=== PATIENT | female | born 1965 | race African-American/Black ===

== ENCOUNTER 2021-09-23 09:04 | Emergency (ER) | payer BC ==
[2021-09-23 09:50] LABS: Protime INR 1.19
[2021-09-23 09:59] LABS: Absolute Lymphocytes (CBC) 2.3 K/uL (0.7-4.9); Hematocrit 42.8 % (36.0-45.0); Lymphocytes % 21.6 % (15.3-44.8); RBC Red Blood Cell Count 4.87 M/uL (3.86-4.86)
[2021-09-23 10:06] LABS: Albumin 4.4 g/dL (3.4-5.0); Bilirubin Direct 0.3 mg/dL (0-0.2); Bilirubin Total 1.1 mg/dL (0.2-1.0); Potassium 3.4 mmol/L (3.5-5.1); Protein, Total 9.3 g/dL (6.4-8.2); Troponin High Sensitivity 56.4 pg/mL (<58.9)
[2021-09-23 10:33] LABS: Thyroid Stimulating Hormone 11.8 uIU/mL (0.360-3.740)
--- NOTE | 2021-09-23 11:03 | RAD REPORT ---
EXAM DESCRIPTION: RAD - Chest Single View - 09/23/2021 10:25 am CLINICAL HISTORY: PALPITATIONS Chest pain. COMPARISON: No comparisons FINDINGS: Portable technique limits examination quality. The lungs are grossly clear. The heart is normal in size. No displaced fractures. IMPRESSION: No acute intrathoracic process suspected.
[2021-09-23] MEDS ORDERED: NA CHLORIDE 0.9% 1,000 ML ONE (12:37)
[2021-09-23] MEDS ORDERED: hydrOXYzine HCL 25 MG TAB ONE (13:37)
[2021-09-23] MEDS ORDERED: DIAZEPAM 10 MG/2 ML INJ SYRINGE ONE (15:02)
--- NOTE | 2021-09-23 15:12 | ER ---
Nurse's Notes [facility] Name: Kurtis Singer Age: 56 yrs Sex: Female : 1965 Arrival Date: 09/23/2021 Time: 09:06 Bed 13 Private MD: Diagnosis: Essential (primary) hypertension;Palpitations;Acute stress reaction Presentation: 09/23 09:12 Chief complaint: Patient states: Fast HR started at 7:45 this morning. No pain. Last ll1 time this happened she had a bang energy drink. No caffeine today. Coronavirus screen: Vaccine status: Patient reports receiving the 2nd dose of the covid vaccine. Client denies travel out of the [place] in the last 14 days. At this time, the client does not indicate any symptoms associated with coronavirus-19. Ebola Screen: Patient denies travel to an Ebola-affected area in the 21 days before illness onset. Initial Sepsis Screen: Does the patient meet any 2 criteria? HR > 90 bpm. No. Patient's initial sepsis screen is negative. Does the patient have a suspected source of infection? No. Patient's initial sepsis screen is negative. Risk Assessment: Do you want to hurt yourself or someone else? Patient reports no desire to harm self or others. Onset of symptoms was September 23, 2021. 09:12 Method Of Arrival: Ambulatory ll1 09:12 Acuity: LUIS ALFREDO 3 ll1 Triage Assessment: 09:14 General: Appears uncomfortable, Behavior is cooperative, appropriate for age. Pain: ss Denies pain. Cardiovascular: Reports lightheadedness, palpitations. Historical: - Allergies: 09:13 PENICILLINS; ll1 - PMHx: 09:13 Hypertensive disorder; ll1 - PSHx: 09:13 None; ll1 - Immunization history:: Client reports receiving the 2nd dose of the Covid vaccine. - Social history:: Smoking status: Patient denies any tobacco usage or history of. Screenin:46 Abuse screen: Denies threats or abuse. Denies injuries from another. Nutritional ww screening: No deficits noted. Tuberculosis screening: No symptoms or risk factors identified. Fall Risk None identified. Assessment: 12:45 General: Appears in no apparent distress. Behavior is cooperative, anxious. Neuro: ww Level of Consciousness is awake, alert, obeys commands, Oriented to person, place, time, situation, Moves all extremities. Gait is steady, Speech is normal. Cardiovascular: Capillary refill < 3 seconds Patient's skin is warm and dry. Rhythm is sinus tachycardia. Respiratory: Airway is patent Respiratory effort is even, unlabored, Respiratory pattern is regular, symmetrical. GI: No signs and/or symptoms were reported involving the gastrointestinal system. : No signs and/or symptoms were reported regarding the genitourinary system. Derm: Skin is intact, is healthy with good turgor, Skin is pink, warm \T\ dry. 13:45 Reassessment: Patient appears in no apparent distress at this time. No changes from ww previously documented assessment. Patient and/or family updated on plan of care and expected duration. Pain level reassessed. Patient is alert, oriented x 3, equal unlabored respirations, skin warm/dry/pink. 15:19 Reassessment: Patient appears in no apparent distress at this time. No changes from ww previously documented assessment. Patient and/or family updated on plan of care and expected duration. Pain level reassessed. Patient is alert, oriented x 3, equal unlabored respirations, skin warm/dry/pink. 16:39 Reassessment: Patient appears in no apparent distress at this time. No changes from ww previously documented assessment. Patient and/or family updated on plan of care and expected duration. Pain level reassessed. Patient is alert, oriented x 3, equal unlabored respirations, skin warm/dry/pink. Patient states feeling better. Vital Signs: 09:12 BP 173 / 105; Pulse 126; Resp 17; Temp 98.1; Pulse Ox 99% ; Weight 97.07 kg; Height 5 ll1 ft. 2 in. (157.48 cm); Pain 0/10; 12:46 BP 161 / 92; Pulse 120; Resp 19; ww 13:30 BP 170 / 98; Pulse 110; Resp 17; ww 14:30 BP 148 / 91; Pulse 88; Resp 20; ww 15:47 BP 142 / 90; Pulse 101; Resp 20; ww 16:39 BP 144 / 94; Pulse 95; Resp 19; Pulse Ox 98% ; ww 09:12 Body Mass Index 39.14 (97.07 kg, 157.48 cm) ll1 ED Course: 09:06 Patient arrived in ED. mr 09:13 Triage completed. ll1 09:14 Arm band placed on. ll1 09:27 Marinas, Quan, [employer] SALES ENGINE[employer] is PHCP. pm1 09:27 All Fraser MD is Attending Physician. pm1 10:27 XRAY Chest (1 view) In Process Unspecified. EDMS 12:31 Angela Perez, RN is Primary Nurse. ww 12:46 Patient has correct armband on for positive identification. Bed in low position. Call ww light in reach. Side rails up X 1. Client placed on continuous cardiac and pulse oximetry monitoring. NIBP monitoring applied. Warm blanket given. 12:46 IV is patent, is intact, with fluids infusing freely, with good blood return. ww 13:30 No provider procedures requiring assistance completed. IV discontinued, bleeding ww controlled, No redness/swelling at site. Pressure dressing applied. Administered Medications: 12:45 Drug: NS 0.9% 1000 ml Route: IV; Rate: 1000 ml; Site: left antecubital; ww 13:40 Drug: hydrOXYzine 50 mg Route: PO; ww 15:10 Drug: Valium (diazepam) 2 mg Route: IVP; Site: left antecubital; ww Outcome: 13:30 Discharged to home ambulatory. ww 13:30 Condition: stable 13:30 Discharge instructions given to patient, Instructed on discharge instructions, follow up and referral plans. medication usage, safety practices, Demonstrated understanding of instructions, follow-up care, medications, Prescriptions given X 1. 15:12 Discharge ordered by . pm1 16:41 Patient left the ED. ww Signatures: Dispatcher [employer] [facility] Brina MercadoJennie zamora RN RN Quan Sanchez NP [employer] SAL[employer] pm1 Tressa Harrison RN RN [facility] Angela Perez RN RN
--- NOTE | 2021-09-23 15:12 | EDPHYS ---
Physician Documentation [facility] Name: Kurtis Singer Age: 56 yrs Sex: Female : 1965 Arrival Date: 09/23/2021 Time: 09:06 Bed 13 Private MD: ED Physician All Fraser HPI: 09/23 09:31 This 56 yrs old Black Female presents to ER via Ambulatory with complaints of High pm1 Blood Pressure, Heart racing. 09:31 The patient has elevated blood pressure and discovered this at home, with a home device.pm1 09:31 Onset: The symptoms/episode began/occurred this morning. Modifying factors: The pm1 symptoms are aggravated by stress. Associated signs and symptoms: Pertinent negatives: chest pain, nausea, vomiting, shortness of breath. Severity of symptoms: in the emergency department the blood pressure is unchanged. The patient has experienced similar episodes in the past, a few times, today's symptoms are similar, to previous energy drink consumption. The patient has not recently seen a physician. Historical: - Allergies: 09:13 PENICILLINS; ll1 - PMHx: 09:13 Hypertensive disorder; ll1 - PSHx: 09:13 None; ll1 - Immunization history:: Client reports receiving the 2nd dose of the Covid vaccine. - Social history:: Smoking status: Patient denies any tobacco usage or history of. ROS: 09:31 Constitutional: Negative for fever, chills, and weight loss. pm1 09:31 Respiratory: Negative for shortness of breath, cough, wheezing, and pleuritic chest pain, Abdomen/GI: Negative for abdominal pain, nausea, vomiting, diarrhea, and constipation, Back: Negative for injury and pain, Skin: Negative for injury, rash, and discoloration, Neuro: Negative for headache, weakness, numbness, tingling, and seizure. 09:31 Cardiovascular: Positive for palpitations, Negative for chest pain. 09:31 All other systems are negative. Exam: 09:31 Constitutional: This is a well developed, well nourished patient who is awake, alert, pm1 and in no acute distress. Head/Face: Normocephalic, atraumatic. 09:31 Respiratory: Lungs have equal breath sounds bilaterally, clear to auscultation and percussion. No rales, rhonchi or wheezes noted. No increased work of breathing, no retractions or nasal flaring. Abdomen/GI: Soft, non-tender, with normal bowel sounds. No distension or tympany. No guarding or rebound. No evidence of tenderness throughout. Back: No spinal tenderness. No costovertebral tenderness. Full range of motion. Skin: Warm, dry with normal turgor. Normal color with no rashes, no lesions, and no evidence of cellulitis. MS/ Extremity: Pulses equal, no cyanosis. Neurovascular intact. Full, normal range of motion. 09:31 Cardiovascular: Rate: tachycardic, Rhythm: Pulses: no pulse deficits are appreciated. 09:31 Neuro: Exam negative for acute changes, Orientation: is normal, Mentation: is normal, Motor: is normal, moves all fours. Vital Signs: 09:12 BP 173 / 105; Pulse 126; Resp 17; Temp 98.1; Pulse Ox 99% ; Weight 97.07 kg; Height 5 ll1 ft. 2 in. (157.48 cm); Pain 0/10; 12:46 BP 161 / 92; Pulse 120; Resp 19; ww 13:30 BP 170 / 98; Pulse 110; Resp 17; ww 14:30 BP 148 / 91; Pulse 88; Resp 20; ww 15:47 BP 142 / 90; Pulse 101; Resp 20; ww 16:39 BP 144 / 94; Pulse 95; Resp 19; Pulse Ox 98% ; ww 09:12 Body Mass Index 39.14 (97.07 kg, 157.48 cm) ll1 MDM: 10:01 Patient medically screened. pm1 13:22 ED course: Patient crying and and reporting that many of her symptoms are related to pm1 stressors in life at the moment: sister from cancer, taking care of 33 year old son who has money problems. Will give patient medications for her anxiety and will reassess. 13:22 Counseling: I had a detailed discussion with the patient and/or guardian regarding: the pm1 historical points, exam findings, and any diagnostic results supporting the discharge/admit diagnosis, lab results, radiology results, the need for outpatient follow up, to return to the emergency department if symptoms worsen or persist or if there are any questions or concerns that arise at home. 15:02 Data reviewed: vital signs. Data interpreted: Pulse oximetry: on room air is 99 %. pm1 Interpretation: normal. 09/23 09:31 Order name: Basic Metabolic Panel; Complete Time: 10:08 pm09/23 09:31 Order name: CBC with Diff; Complete Time: 10:08 pm09/23 09:31 Order name: LFT's; Complete Time: 10:08 pm1 09/23 09:31 Order name: Magnesium; Complete Time: 10:08 pm1 09/23 09:31 Order name: NT PRO-BNP; Complete Time: 10:08 pm09/23 09:31 Order name: PT-INR; Complete Time: 10:08 pm1 09/23 09:21 Order name: EKG; Complete Time: 09:21 rn 09/23 09:31 Order name: Troponin HS; Complete Time: 10:08 pm1 09/23 09:31 Order name: XRAY Chest (1 view); Complete Time: 11:23 pm1 09/23 09:50 Order name: TSH; Complete Time: 11:23 pm1 09/23 10:35 Order name: T4 Free; Complete Time: 11:23 EDMS 09/23 09:31 Order name: Cardiac monitoring; Complete Time: 09:39 pm1 09/23 09:31 Order name: EKG - Nurse/Tech; Complete Time: 09:39 pm1 09/23 09:31 Order name: IV Saline Lock; Complete Time: 10:59 pm1 09/23 09:31 Order name: Labs collected and sent; Complete Time: 12:45 pm1 09/23 09:31 Order name: O2 Per Protocol; Complete Time: 12:45 pm1 09/23 09:31 Order name: O2 Sat Monitoring; Complete Time: 12:45 pm1 Administered Medications: 12:45 Drug: NS 0.9% 1000 ml Route: IV; Rate: 1000 ml; Site: left antecubital; ww 13:40 Drug: hydrOXYzine 50 mg Route: PO; ww 15:10 Drug: Valium (diazepam) 2 mg Route: IVP; Site: left antecubital; ww Disposition: 18:54 Co-signature as Attending Physician, All Fraser MD. rn Disposition Summary: 09/23/21 15:12 Discharge Ordered Location: Home pm1 Problem: new pm1 Symptoms: have improved pm1 Condition: Stable pm1 Diagnosis - Essential (primary) hypertension pm1 - Palpitations pm1 - Acute stress reaction pm1 Followup: pm1 - With: Emergency Department - When: As needed - Reason: Worsening of condition Followup: pm1 - With: Private Physician - When: 2 - 3 days - Reason: Recheck today's complaints, Continuance of care, Re-evaluation by your physician Discharge Instructions: - Discharge Summary Sheet pm1 - Hypertension, Adult pm1 - Palpitations pm1 - Stress, Adult pm1 - How to Take Your Blood Pressure, [id number] pm1 - DASH Eating Plan pm1 - Managing Your Hypertension pm1 Forms: - Medication Reconciliation Form pm1 - Thank You Letter pm1 - Antibiotic Education pm1 - Prescription Opioid Use pm1 Prescriptions: - Valium 2 mg Oral Tablet - take 1 tablet by ORAL route every 8 hours As needed; 10 tablet; Refills: 0, pm1 Product Selection Permitted Signatures: Dispatcher [employer] All Abreu MD MD rn Quan Sanchez, [employer] pm1 Tressa Harrison RN RN 1 Angela Perez RN RN ww
[2021-09-23 18:54] VITALS: TEMP 98.1
[2021-09-23 19:09] VITALS: BP 144/94; O2SAT 98
--- NOTE | 2021-09-24 12:57 | EKG ---
Test Date: 2021-09-23 Test Time: 09:20:42 Coal Crusher Operator: EDUARDO MEASUREMENT RESULTS: Intervals: Rate: 128 TX: 168 QRSD: 78 QT: 288 QTc: 420 [place]: P: 71 TX: 168 QRS: 102 T: 5 INTERPRETIVE STATEMENTS: Sinus tachycardia with premature atrial complexes Rightward axis Cannot rule out Anterior infarct, age undetermined T wave abnormality, consider inferior ischemia Abnormal ECG No previous ECG available for comparison Electronically Signed On 09-24-21 12:52:21 CDT by Pierre Solis
== END 2021-09-23 16:41 | disposition home or self-care (01) ==
LOC: ER 09:04
DX: I10 Essential (primary) hypertension (principal); F43.0 Acute stress reaction; R00.2 Palpitations; Z88.0 Allergy status to penicillin
CPT/HCPCS: 93005; 85025; 80048; 36415; 83735; 85610; 80076; 84443; 84484; 84439; 83880; 71045; J3360; J7030; 96374; 99284

== ENCOUNTER 2021-09-29 03:45 | Emergency (ER) | payer BC ==
[2021-09-29 04:23] LABS: Urine Blood Negative (Negative); Urine Glucose Negative (Negative); Urine Protein Negative (Negative)
--- NOTE | 2021-09-29 07:10 | RAD REPORT ---
EXAM DESCRIPTION: RAD - Chest Single View - 09/29/2021 6:55 am CLINICAL HISTORY: CHEST PAIN COMPARISON: Chest Single View dated 09/23/2021 FINDINGS: Lines: None. Lungs: No evidence of edema or pneumonia. Pleural: No significant pleural effusions or pneumothorax. Cardiac: The heart size is within normal limits. Bones: No acute fractures. Other: IMPRESSION: No acute cardiopulmonary disease.
[2021-09-29 07:36] LABS: Absolute Lymphocytes (CBC) 2.5 K/uL (0.7-4.9); Hematocrit 41.8 % (36.0-45.0); Lymphocytes % 20.5 % (15.3-44.8); MPV 8.4 fL (7.6-11.3); RBC Red Blood Cell Count 4.73 M/uL (3.86-4.86)
[2021-09-29 07:42] LABS: Protime INR 1.11
[2021-09-29] MEDS ORDERED: METOPROLOL TAR 50 MG TAB ONE (07:44)
[2021-09-29] MEDS ORDERED: NA CHLORIDE 0.9% 500 ML ONE (07:44)
[2021-09-29] MEDS ORDERED: NA CHLORIDE 0.9% 1,000 ML ONE (07:44)
[2021-09-29 08:11] LABS: Thyroid Stimulating Hormone 14.2 uIU/mL (0.360-3.740)
[2021-09-29 08:12] LABS: ALT/SGPT 56 U/L (12-78); AST/SGOT 38 U/L (15-37); Albumin 4.3 g/dL (3.4-5.0); Alkaline Phosphatase 90 U/L (45-117); BUN Blood Urea Nitrogen 17 mg/dL (7-18); Bicarbonate 25 mmol/L (21-32); Bilirubin Total 0.3 mg/dL (0.2-1.0); Glucose Level 127 mg/dL (74-106); Magnesium 1.9 mg/dL (1.8-2.4); NT PRO-BNP 34 pg/mL (<125); Potassium 3.5 mmol/L (3.5-5.1); Sodium Level 134 mmol/L (136-145); Troponin High Sensitivity 44.8 pg/mL (<58.9)
[2021-09-29 08:15] LABS: Bilirubin Direct < 0.1 mg/dL (0-0.2)
--- NOTE | 2021-09-29 08:27 | RAD REPORT ---
EXAM DESCRIPTION: US - Extrem Venous W Compress Silvio - 09/29/2021 8:08 am CLINICAL HISTORY: PAIN COMPARISON: No comparisons TECHNIQUE: Real-time sonographic evaluation of the lower extremity deep venous systems was performed using color Doppler, grayscale, and compression. FINDINGS: Bilateral lower extremities. Normal compressibility, flow augmentation, phasic flow and spontaneous flow is identified in both the left and right lower extremity deep venous systems. No intraluminal filling defects seen. IMPRESSION: No DVT in either lower extremity.
--- NOTE | 2021-09-29 08:29 | RAD REPORT ---
EXAM DESCRIPTION: CT - Chest For Pe Angio - 09/29/2021 8:18 am CLINICAL HISTORY: dyspnea COMPARISON: No comparisons FINDINGS: Chest Wall: No suspicious thyroid nodules or pathologic lymphadenopathy. Lungs: No acute abnormality. Pleura: No significant effusions or pneumothorax. Mediastinum/tracy: No pathologic lymphadenopathy. Pulmonary arteries/Aorta: No filling defect identified. No aortic aneurysm. Heart: No significant pericardial effusion. Normal heart size. Upper abdomen: No acute abnormality. Bones: No acute abnormality. All CT scans are performed using dose optimization technique as appropriate and may include automated exposure control or mA/KV adjustment according to patient size. IMPRESSION: Negative for pulmonary embolism. No acute findings in the chest.
--- NOTE | 2021-09-29 08:55 | EKG ---
Test Date: 2021-09-29 Test Time: 04:09:53 Route Returner: ENMANUEL MEASUREMENT RESULTS: Intervals: Rate: 120 SC: 188 QRSD: 86 QT: 292 QTc: 412 [place]: P: 63 SC: 188 QRS: 31 T: 8 INTERPRETIVE STATEMENTS: Sinus tachycardia Cannot rule out Anterior infarct, age undetermined Abnormal ECG Compared to ECG 09/23/2021 09:20:42 Atrial premature complex(es) no longer present Right-axis deviation no longer present T-wave abnormality no longer present Possible ischemia no longer present Myocardial infarct finding still present Electronically Signed On 09-29-21 08:54:19 CDT by Pierre Solis
--- NOTE | 2021-09-29 09:40 | ER ---
Nurse's Notes [facility] Name: Kurtis Singer Age: 56 yrs Sex: Female : 1965 Arrival Date: 09/29/2021 Time: 03:48 Bed 25 Private MD: Diagnosis: Tachycardia, unspecified;Palpitations;Essential (primary) hypertension Presentation: 09/29 04:01 Chief complaint: Patient states: she noticed her heart rate was high this morning bb approx 40 minutes ago denies chest pain, sweating or any other symptoms she has a doctor's appt at 0900 this morning sees Sherrell Padilla NP. Coronavirus screen: At this time, the client does not indicate any symptoms associated with coronavirus-19. Ebola Screen: No symptoms or risks identified at this time. Initial Sepsis Screen: Does the patient meet any 2 criteria? No. Patient's initial sepsis screen is negative. Does the patient have a suspected source of infection? No. Patient's initial sepsis screen is negative. Risk Assessment: Do you want to hurt yourself or someone else? Patient reports no desire to harm self or others. Onset of symptoms was September 29, 2021. 04:01 Method Of Arrival: Ambulatory bb 04:01 Acuity: LUIS ALFREDO 3 bb Triage Assessment: 04:03 General: Appears in no apparent distress. Behavior is cooperative, anxious. Pain: bb Denies pain. Neuro: Level of Consciousness is awake, alert, obeys commands, Oriented to person, place, time, situation. Cardiovascular: Capillary refill < 3 seconds Patient's skin is warm and dry. Respiratory: Respiratory effort is even, unlabored, Respiratory pattern is regular. GI: No signs and/or symptoms were reported involving the gastrointestinal system. Derm: Skin is dry, Skin is normal, Skin temperature is warm. Musculoskeletal: Circulation, motion, and sensation intact. Historical: - Allergies: 04:03 PENICILLINS; bb - Home Meds: 04:03 amlodipine oral [Active]; valsartan oral [Active]; Aspirin Oral [Active]; bb - PMHx: 04:03 Hypertensive disorder; bb - PSHx: 04:03 None; bb - Immunization history:: Moderna x 2. - Social history:: Smoking status: Patient denies any tobacco usage or history of. - Family history:: not pertinent. Screenin:48 Abuse screen: Denies threats or abuse. Denies injuries from another. Nutritional lg3 screening: No deficits noted. Tuberculosis screening: No symptoms or risk factors identified. Fall Risk None identified. Assessment: 06:48 General: Appears in no apparent distress. comfortable, Behavior is cooperative, lg3 anxious. Pain: Denies pain. Neuro: No deficits noted. Cortez Agitation-Sedation Scale (RASS): 0 - Alert and Calm Level of Consciousness is awake, alert, obeys commands, Oriented to person, place, time, situation. Cardiovascular: Reports high heart rate Denies chest pain, shortness of breath. Respiratory: No deficits noted. Airway is patent Trachea midline Respiratory effort is even, unlabored, Respiratory pattern is regular, symmetrical. GI: No deficits noted. No signs and/or symptoms were reported involving the gastrointestinal system. : No deficits noted. No signs and/or symptoms were reported regarding the genitourinary system. EENT: No deficits noted. No signs and/or symptoms were reported regarding the EENT system. Derm: No deficits noted. No signs and/or symptoms reported regarding the dermatologic system. Skin is intact, is healthy with good turgor, Skin is dry, Skin is pink, warm \\T\\ dry. Musculoskeletal: No deficits noted. No signs and/or symptoms reported regarding the musculoskeletal system. Circulation, motion, and sensation intact. Capillary refill < 3 seconds, Range of motion: intact in all extremities. 07:10 General: Appears comfortable, Behavior is cooperative, Pt verbalizes anxiety, verbal aa5 reassurance provided and pt appears more calm after reassurance was provided. . Pain: Denies pain. Neuro: Level of Consciousness is awake, alert, obeys commands, Oriented to person, place, time, situation. Cardiovascular: Denies chest pain, lightheadedness, shortness of breath, Reports episode of palpitations 3 weeks ago and reports one episode today, pt states "I was just getting up to go to the restroom and I felt my heart beating fast". Heart tones S1 S2 present Edema is absent. Rhythm is sinus tachycardia. Respiratory: Airway is patent Respiratory effort is even, unlabored, Respiratory pattern is regular, symmetrical, Breath sounds are clear bilaterally. Denies cough, shortness of breath labored breathing. GI: Abdomen is round non-distended, Bowel sounds present X 4 quads. Abd is soft and non tender X 4 quads. Patient currently denies abdominal pain, diarrhea, nausea, vomiting. : No signs and/or symptoms were reported regarding the genitourinary system. EENT: No signs and/or symptoms were reported regarding the EENT system. Derm: Skin is dry, Skin is normal, Skin temperature is warm. Musculoskeletal: Range of motion: intact in all extremities. 07:48 Neuro: Level of Consciousness is awake, alert, obeys commands, Oriented to person, aa5 place, time, situation. Respiratory: Airway is patent Respiratory effort is even, unlabored, Respiratory pattern is regular, symmetrical. Derm: Skin is dry, Skin is normal, Skin temperature is warm. 07:48 Reassessment: Pt sitting up in bed, Sinus tach on monitor at 106 bpm. . aa5 07:54 Reassessment: Pt got out bed to remove her pants for US and pt's heart rate was noted aa5 to go up to 146bpm, sinus tachycardia on monitor, pt's HR now 125 bpm after getting back onto bed. MD was notified. . 08:09 Reassessment: US completed, pt now to CT scan accompanied by sales service technician. . aa5 08:30 Reassessment: Pt back from CT scan, HR now 93 bpm, NSR on monitor. Pt states feeling aa5 better, anxiety decreased. Pt states "I feel like the medicine (Lopressor) worked and I feel more calm now". MD was notified. . 09:45 Reassessment: Awaiting NS bolus to complete and orthostatics before d/c home per MD. aa5 10:05 Neuro: Level of Consciousness is awake, alert, obeys commands, Oriented to person, aa5 place, time, situation. Cardiovascular: Rhythm is sinus rhythm. Respiratory: Airway is patent Respiratory effort is even, unlabored, Respiratory pattern is regular, symmetrical. Derm: Skin is dry, Skin is normal, Skin temperature is warm. 11:05 Neuro: Level of Consciousness is awake, alert, obeys commands, Oriented to person, aa5 place, time, situation. Respiratory: Airway is patent Respiratory effort is even, unlabored, Respiratory pattern is regular, symmetrical. Derm: Skin is dry, Skin is normal, Skin temperature is warm. Vital Signs: 04:01 BP 162 / 65; Pulse 121; Resp 16 S; Temp 98.2(O); Pulse Ox 100% on R/A; Weight 97.07 kg bb (R); Height 5 ft. 2 in. (157.48 cm) (R); Pain 0/10; 07:07 BP 191 / 92; Pulse 116; Resp 20 S; Pulse Ox 98% on R/A; aa5 08:00 BP 171 / 91; Pulse 115; Resp 18 S; Pulse Ox 100% on R/A; aa5 09:15 BP 153 / 93; Pulse 88; Resp 16 S; Pulse Ox 100% on R/A; aa5 10:05 BP 159 / 94 Supine; Pulse 86; aa5 10:07 BP 166 / 94 Sitting; Pulse 90; aa5 10:09 BP 178 / 94 Standing; Pulse 91; Resp 16 S; Temp 98.0(TE); Pulse Ox 100% on R/A; aa5 04:01 Body Mass Index 39.14 (97.07 kg, 157.48 cm) bb ED Course: 03:48 Patient arrived in ED. kz 04:03 Triage completed. bb 04:03 Arm band placed on Patient placed in waiting room, Patient notified of wait time. bb 04:19 EKG completed in triage. Results shown to MD. bb 06:31 Inserted saline lock: 20 gauge in left antecubital area, using aseptic technique. Blood mw2 collected. 06:41 Deric Irizarry MD is Attending Physician. [facility] 06:47 Jalyn Ball, LESLY is Primary Nurse. lg3 06:48 Patient has correct armband on for positive identification. Bed in low position. Call lg3 light in reach. Side rails up X 1. Client placed on continuous cardiac and pulse oximetry monitoring. NIBP monitoring applied. pvc monitor on. Door closed. Noise minimized. 06:50 Basic Metabolic Panel Sent. lg3 06:50 CBC with Diff Sent. lg3 06:50 LFT's Sent. lg3 06:50 Magnesium Sent. lg3 06:50 NT PRO-BNP Sent. lg3 06:50 PT-INR Sent. lg3 06:50 Troponin HS Sent. lg3 06:57 XRAY Chest (1 view) In Process Unspecified. EDMS 07:00 Report received from LESLY Gunderson. aa5 07:11 John Adams MD is Attending Physician. tere 07:44 Primary Nurse role handed off by Jalyn Ball RN 07:51 Amanda Pineda, RN is Primary Nurse. aa5 08:10 US Extremity Venous W Compression Silvio In Process Unspecified. EDMS 08:19 CT Chest For PE Angio In Process Unspecified. EDMS 09:38 Pierre Solis MD is Referral Physician. tere 11:12 No provider procedures requiring assistance completed. IV discontinued, intact, aa5 bleeding controlled, No redness/swelling at site. Pressure dressing applied. Administered Medications: 07:48 Drug: NS 0.9% 500 ml Route: IV; Rate: bolus; Site: left antecubital; aa5 09:15 Follow up: IV Status: Completed infusion; IV Intake: 500ml aa5 07:48 Drug: NS 0.9% 1000 ml Route: IV; Rate: 125 ml/hr; Site: left antecubital; aa5 11:03 Follow up: IV Status: Order to discontinue infusion aa5 07:48 Drug: Lopressor (metoprolol TARTRATE) 50 mg Route: PO; aa5 09:15 Follow up: Response: No adverse reaction; Marked relief of symptoms aa5 09:35 Drug: NS 0.9% 500 ml Route: IV; Rate: bolus; Site: left antecubital; aa5 10:04 Follow up: IV Status: Completed infusion; IV Intake: 500ml aa5 11:03 Drug: Aspirin 81 mg Route: PO; aa5 11:03 Follow up: Response: Medication administered at discharge. aa5 11:03 Follow up: Response: No adverse reaction aa5 Intake: 09:15 IV: 500ml; Total: 500ml. aa5 10:04 IV: 500ml; Total: 1000ml. aa5 Outcome: 09:39 Discharge ordered by . tere 11:12 Discharged to home ambulatory, with family. aa5 11:12 Condition: improved 11:12 Discharge instructions given to patient, Instructed on discharge instructions, follow up and referral plans. medication usage, Demonstrated understanding of instructions, follow-up care, medications, Prescriptions given X 1. 11:15 Patient left the ED. aa5 Signatures: Dispatcher [employer] EDNY Laly Cifuentes Corey, MD MD cha Ballard, Brenda, RN RN bb Amanda Pineda RN RN aa5 Aakash Oswald mw2 Jalyn Ball, RN RN lg3 Deric Irizarry MD MD mh7 Emily Chengz Corrections: (The following items were deleted from the chart) 11:32 10:09 BP 178 / 94 Standing; Pulse 91bpm; aa5 aa5
--- NOTE | 2021-09-29 09:40 | EDPHYS ---
Physician Documentation [facility] Name: Kurtis Singer Age: 56 yrs Sex: Female : 1965 Arrival Date: 09/29/2021 Time: 03:48 Bed 25 Private MD: ED Physician John Adams HPI: 09/29 09:35 This 56 yrs old Black Female presents to ER via Ambulatory with complaints of High tere heart rate. 09:35 The patient presents with a history of heart racing. Context: The symptoms occur at tere rest. Onset: The symptoms/episode began/occurred just prior to arrival. Duration: The patient or guardian reports multiple episodes, with no pattern. Modifying factors: The symptoms are aggravated by light activity, The symptoms are alleviated by nothing. Associated signs and symptoms: The patient has no apparent associated signs or symptoms. Severity of symptoms: At their worst the symptoms were mild in the emergency department the symptoms have improved. The patient has not experienced similar symptoms in the past. Historical: - Allergies: 04:03 PENICILLINS; bb - Home Meds: 04:03 amlodipine oral [Active]; valsartan oral [Active]; Aspirin Oral [Active]; bb - PMHx: 04:03 Hypertensive disorder; bb - PSHx: 04:03 None; bb - Immunization history:: Moderna x 2. - Social history:: Smoking status: Patient denies any tobacco usage or history of. - Family history:: not pertinent. ROS: 09:35 Constitutional: Negative for fever, chills, and weight loss, Eyes: Negative for injury, tere pain, redness, and discharge, ENT: Negative for injury, pain, and discharge, Neck: Negative for injury, pain, and swelling, Respiratory: Negative for shortness of breath, cough, wheezing, and pleuritic chest pain, Abdomen/GI: Negative for abdominal pain, nausea, vomiting, diarrhea, and constipation, Back: Negative for injury and pain, : Negative for injury, bleeding, discharge, and swelling, MS/Extremity: Negative for injury and deformity, Skin: Negative for injury, rash, and discoloration, Neuro: Negative for headache, weakness, numbness, tingling, and seizure, Psych: Negative for depression, anxiety, suicide ideation, homicidal ideation, and hallucinations, Allergy/Immunology: Negative for hives, rash, and allergies, Endocrine: Negative for neck swelling, polydipsia, polyuria, polyphagia, and marked weight changes, Hematologic/Lymphatic: Negative for swollen nodes, abnormal bleeding, and unusual bruising. 09:35 Cardiovascular: Positive for palpitations. Exam: 09:35 Constitutional: This is a well developed, well nourished patient who is awake, alert, tere and in no acute distress. Head/Face: Normocephalic, atraumatic. Eyes: Pupils equal round and reactive to light, extra-ocular motions intact. Lids and lashes normal. Conjunctiva and sclera are non-icteric and not injected. Cornea within normal limits. Periorbital areas with no swelling, redness, or edema. ENT: Nares patent. No nasal discharge, no septal abnormalities noted. Tympanic membranes are normal and external auditory canals are clear. Oropharynx with no redness, swelling, or masses, exudates, or evidence of obstruction, uvula midline. Mucous membranes moist. Neck: Trachea midline, no thyromegaly or masses palpated, and no cervical lymphadenopathy. Supple, full range of motion without nuchal rigidity, or vertebral point tenderness. No Meningismus. Chest/axilla: Normal chest wall appearance and motion. Nontender with no deformity. No lesions are appreciated. Respiratory: Lungs have equal breath sounds bilaterally, clear to auscultation and percussion. No rales, rhonchi or wheezes noted. No increased work of breathing, no retractions or nasal flaring. Abdomen/GI: Soft, non-tender, with normal bowel sounds. No distension or tympany. No guarding or rebound. No evidence of tenderness throughout. Back: No spinal tenderness. No costovertebral tenderness. Full range of motion. Female : Normal external genitalia. Skin: Warm, dry with normal turgor. Normal color with no rashes, no lesions, and no evidence of cellulitis. MS/ Extremity: Pulses equal, no cyanosis. Neurovascular intact. Full, normal range of motion. Neuro: Awake and alert, GCS 15, oriented to person, place, time, and situation. Cranial nerves II-XII grossly intact. Motor strength 5/5 in all extremities. Sensory grossly intact. Cerebellar exam normal. Normal gait. Psych: Awake, alert, with orientation to person, place and time. Behavior, mood, and affect are within normal limits. 09:35 Cardiovascular: Rate: tachycardic, actual rate is 120 bpm, Rhythm: regular, Pulses: Pulses are 4+ in bilateral radial, brachial, femoral, popliteal, posterior tibial and and dorsalis pedis arteries.. Heart sounds: normal, Edema: is not appreciated, JVD: is not appreciated. 09:35 ECG was reviewed by the Attending Physician. Vital Signs: 04:01 BP 162 / 65; Pulse 121; Resp 16 S; Temp 98.2(O); Pulse Ox 100% on R/A; Weight 97.07 kg bb (R); Height 5 ft. 2 in. (157.48 cm) (R); Pain 0/10; 07:07 BP 191 / 92; Pulse 116; Resp 20 S; Pulse Ox 98% on R/A; aa5 08:00 BP 171 / 91; Pulse 115; Resp 18 S; Pulse Ox 100% on R/A; aa5 09:15 BP 153 / 93; Pulse 88; Resp 16 S; Pulse Ox 100% on R/A; aa5 10:05 BP 159 / 94 Supine; Pulse 86; aa5 10:07 BP 166 / 94 Sitting; Pulse 90; aa5 10:09 BP 178 / 94 Standing; Pulse 91; Resp 16 S; Temp 98.0(TE); Pulse Ox 100% on R/A; aa5 04:01 Body Mass Index 39.14 (97.07 kg, 157.48 cm) bb MDM: 07:11 Patient medically screened. [facility] 09:35 Differential diagnosis: arrythmia, dehydration. Data reviewed: vital signs, nurses tere notes, lab test result(s), EKG, radiologic studies, plain films. Data interpreted: lunchroom monitor: rate is 88 beats/min, rhythm is regular, Pulse oximetry: on room air is 100 %. Test interpretation: by ED physician or midlevel provider: ECG, plain radiologic studies. Counseling: I had a detailed discussion with the patient and/or guardian regarding: the historical points, exam findings, and any diagnostic results supporting the discharge/admit diagnosis, lab results, radiology results, the need for outpatient follow up, for definitive care, a composite bond worker, a family practitioner. 09/29 04:24 Order name: Urine Dipstick-Ancillary; Complete Time: 09:32 EDMS 09/29 06:38 Order name: Basic Metabolic Panel; Complete Time: 09:32 mw2 09/29 06:38 Order name: CBC with Diff; Complete Time: 09:32 mw2 09/29 06:38 Order name: LFT's; Complete Time: 09:32 mw2 09/29 06:38 Order name: Magnesium; Complete Time: 09:32 mw2 09/29 06:38 Order name: NT PRO-BNP; Complete Time: 09:32 mw2 09/29 06:38 Order name: PT-INR; Complete Time: 09:32 mw2 09/29 06:38 Order name: Troponin HS; Complete Time: 09:32 mw2 09/29 06:38 Order name: XRAY Chest (1 view); Complete Time: 09:32 mw2 09/29 07:21 Order name: TSH; Complete Time: 09:32 tere 09/29 07:39 Order name: D-Dimer; Complete Time: 09:32 EDMS 09/29 07:48 Order name: US Extremity Venous W Compression Silvio; Complete Time: 09:32 tere 09/29 08:14 Order name: T4 Free; Complete Time: 09:32 EDMS 09/29 05:45 Order name: EKG - Nurse/Tech; Complete Time: 05:46 mw2 09/29 05:45 Order name: Urine Dipstick-Ancillary (obtain specimen); Complete Time: 05:46 mw2 09/29 06:38 Order name: EKG; Complete Time: 06:39 mw2 09/29 06:38 Order name: Cardiac monitoring; Complete Time: 06:50 mw2 09/29 06:38 Order name: IV Saline Lock; Complete Time: 06:50 mw2 09/29 06:38 Order name: Labs collected and sent; Complete Time: 06:50 mw2 09/29 06:38 Order name: O2 Per Protocol; Complete Time: 06:50 mw2 09/29 06:38 Order name: O2 Sat Monitoring; Complete Time: 06:50 mw2 09/29 06:41 Order name: EKG Electrocardiogram; Complete Time: 06:51 EDMS 09/29 07:48 Order name: CT Chest For PE Angio; Complete Time: 09:32 tere 09/29 09:33 Order name: Orthostatic Blood Pressure; Complete Time: 10:12 tere EC:35 Rate is 120 beats/min. Rhythm is regular. QRS [place] is Normal. TN interval is normal. tere QRS interval is normal. QT interval is normal. No Q waves. T waves are Normal. No ST changes noted. Clinical impression: Sinus tachycardia and No evidence of ischemia. Interpreted by me. Reviewed by me. Administered Medications: 07:48 Drug: NS 0.9% 500 ml Route: IV; Rate: bolus; Site: left antecubital; aa5 09:15 Follow up: IV Status: Completed infusion; IV Intake: 500ml aa5 07:48 Drug: NS 0.9% 1000 ml Route: IV; Rate: 125 ml/hr; Site: left antecubital; aa5 11:03 Follow up: IV Status: Order to discontinue infusion aa5 07:48 Drug: Lopressor (metoprolol TARTRATE) 50 mg Route: PO; aa5 09:15 Follow up: Response: No adverse reaction; Marked relief of symptoms aa5 09:35 Drug: NS 0.9% 500 ml Route: IV; Rate: bolus; Site: left antecubital; aa5 10:04 Follow up: IV Status: Completed infusion; IV Intake: 500ml aa5 11:03 Drug: Aspirin 81 mg Route: PO; aa5 11:03 Follow up: Response: Medication administered at discharge. aa5 11:03 Follow up: Response: No adverse reaction aa5 Disposition Summary: 09/29/21 09:39 Discharge Ordered Location: Home tere Problem: new tere Symptoms: have improved tere Condition: Stable tere Diagnosis - Tachycardia, unspecified tere - Palpitations tere - Essential (primary) hypertension tere Followup: tere - With: Private Physician - When: 2 - 3 days - Reason: Recheck today's complaints, Continuance of care, Re-evaluation by your physician Followup: tere - With: Pierre Solis MD - When: 2 - 3 days - Reason: Recheck today's complaints, Continuance of care, Re-evaluation by your physician Discharge Instructions: - Discharge Summary Sheet tere - Hypertension, Adult tere - Palpitations tere - Hypertension, Adult, [id number] tere - How to Take Your Blood Pressure, [id number] tere - Aspirin and Your Heart tere - Palpitations, [id number] tere - Managing Your Hypertension tere Forms: - Medication Reconciliation Form tere - Thank You Letter tere - Antibiotic Education tere - Prescription Opioid Use tere Prescriptions: - Lopressor 50 mg Oral Tablet - take 1 tablet by ORAL route every 12 hours; 40 tablet; Refills: 0, Product tere Selection Permitted Signatures: Dispatcher [employer] John Gomez MD MD cha Ballard, Brenda RN RN bb Amanda Pineda RN RN aa5 Aakash Oswald mw2 Corrections: (The following items were deleted from the chart) 07:38 07:22 [id number] ordered. ED ED
[2021-09-29] MEDS ORDERED: ASPIRIN 81 MG CHEWABLE TABLET ONE (10:25)
[2021-09-29 11:27] VITALS: TEMP 98.2
[2021-09-29 11:32] VITALS: O2SAT 100
[2021-09-29 11:36] VITALS: BP 178/94
== END 2021-09-29 11:15 | disposition home or self-care (01) ==
LOC: ER 03:45
DX: R00.0 Tachycardia, unspecified (principal); R00.2 Palpitations; I10 Essential (primary) hypertension; Z88.0 Allergy status to penicillin
CPT/HCPCS: 93005 ×2; 85025; 80048; 36415; 83735; 85610; 85379; 80076; 84443; 81003; 84484; 84439; 83880; 71275; 71045; 93970; Q9967; J7040; J7030; 96360; 96361; 99284